=== PATIENT | male | born 1995 | race African-American/Black ===

== ENCOUNTER 2021-05-24 01:22 | Emergency (ER) | payer SELFPAY ==
[2021-05-24] MEDS ORDERED: Boostrix 0.5 ML (Tdap) VIAL ONE ×2 (01:46→01:54)
[2021-05-24] MEDS ORDERED: HYDROcodone/Acetaminophen 5/325 mg Tablet ONE (02:06)
[2021-05-24] MEDS ORDERED: Silver Sulfadiazine 50 GM TUBE ONE (02:23)
== END 2021-05-24 02:41 | disposition home or self-care (01) ==
LOC: ERS 01:22
DX: T23.231A Burn of second degree of multiple right fingers (nail), not including thumb, initial encounter (principal); T23.151A Burn of first degree of right palm, initial encounter; T31.0 Burns involving less than 10% of body surface; X08.8XXA Exposure to other specified smoke, fire and flames, initial encounter; Z23 Encounter for immunization
CPT/HCPCS: 90471; 90715; 99283

== ENCOUNTER 2023-01-18 17:26 | Emergency (ER) | payer BC | END 2023-01-18 21:25 | disposition left against medical advice (07) | LOC: ERS 17:26 | DX: Z53.21 Procedure and treatment not carried out due to patient leaving prior to being seen by health care provider (principal) ==